=== PATIENT | male | born 1940 | race Hispanic/Latino ===

== ENCOUNTER 2018-04-15 07:54 | Inpatient (IN) | payer MEDICARE ==
[~2018-04-15] VITALS: Ht 175.3 cm; Wt 92.1 kg
[~2018-04-15 07:54] MED LIST: ALPRAZOLAM0.25 MG PO; AMLODIPINE BESY10 MG PO; CELEBREX200 MG PO; GALANTAMINE HBR8 MG PO; HYDROCHLOROTH12.5 MG PO; IMDUR60 MG PO; K DUR10 MEQ PO; LIPITOR40 MG PO; LISINOPRIL40 MG PO; LOSARTAN-HCTZ1 EAC1 PO; LYRICA75 MG PO; METOPROLOL SUCC25 MG PO; NITROGLYCERIN0.4 MG SL; OMEPRAZOLE20 M1 PO; PROSCAR5 MG PO; QUESTRAN PACKET4 GM PO
[2018-04-15] MEDS ORDERED: ONDANSETRON HCL INJ 2 MG/ML VIAL IV PRN ×2 (08:00→09:15)
[2018-04-15] MEDS ORDERED: NITROGLYCERIN 2% OINT 1 GM PKT TOP ONE (08:00)
[2018-04-15 08:16] LABS: BASOPHILS % 0.1 % (0.0-1.0); EOSINOPHILS # (AUTO) 0.2 (0.0-0.4); EOSINOPHILS % 1.8 % (0.0-6.0); HEMATOCRIT 42.2 % (38.2-49.6); LYMPHOCYTES # (AUTO) 1.8 (1.0-3.2); LYMPHOCYTES % 22.3 % (18.0-39.1); MEAN CORPUSCULAR HEMOGLOBIN 33.6 pg (28-32); MEAN CORPUSCULAR HGB CONC 35.5 g/dL (31-35); MEAN CORPUSCULAR VOLUME 94.6 fL (81-99); MONOCYTES # (AUTO) 0.6 (0.2-0.8); MONOCYTES % 6.9 % (4.4-11.3); NEUTROPHILS # (AUTO) 5.6 (2.1-6.9); NEUTROPHILS % 68.7 % (38.7-80.0); PLATELET COUNT 143 x10e3/uL (140-360); RED BLOOD COUNT 4.46 x10e6/uL (4.3-5.7); RED CELL DISTRIBUTION WIDTH 12.9 % (11.7-14.4)
[2018-04-15] MEDS ORDERED: ASPIRIN 81 MG CHEW TAB PO ONE (08:30)
[2018-04-15] MEDS ORDERED: PANTOPRAZOLE 40 MG 10ML VIAL IV ONE (08:30)
[2018-04-15 08:35] LABS: ALANINE AMINOTRANSFERASE 32 IU/L (0-55); ALBUMIN 3.7 g/dL (3.5-5.0); ALBUMIN/GLOBULIN RATIO 1.1 (0.8-2.0); ALKALINE PHOSPHATASE 104 IU/L (40-150); AMYLASE 71 U/L (25-125); ANION GAP 12.8 mmol/L (8-16); BLOOD UREA NITROGEN 13 mg/dL (7-26); BUN/CREATININE RATIO 18 (6-25); CALCIUM 8.9 mg/dL (8.4-10.2); CARBON DIOXIDE 21 mmol/L (22-29); CHLORIDE 111 mmol/L (98-107); CREATINE KINASE 90 IU/L (30-200); CREATININE, SERUM 0.74 mg/dL (0.72-1.25); EST GLOMERULAR FILTRATION RATE > 60 ML/MIN (60-); GLUCOSE 131 mg/dL (74-118); LIPASE 31 U/L (8-78); MAGNESIUM 2.1 MG/DL (1.3-2.1); POTASSIUM 3.8 mmol/L (3.5-5.1); SODIUM 141 mmol/L (136-145)
[2018-04-15] MEDS ORDERED: VITAMIN D1000 UNI1 PO (08:50)
[2018-04-15] MEDS ORDERED: SERTRALINE HCL50 MG PO (08:50)
--- NOTE | 2018-04-15 08:53 | Diagnostic Imaging Report ---
Examination: Single AP view of the chest. COMPARISON: None. INDICATION: Chest pain DISCUSSION: Lines/tubes: None. Lungs: Lungs are well-inflated and clear. Pleura: There is no pleural effusion or pneumothorax. Heart and mediastinum: The heart and the mediastinum are unremarkable. Bones and soft tissues: No acute bony abnormalities. IMPRESSION: 1. No acute cardiopulmonary abnormalities. Signed by: Dr. Cedric Perera M.D. on 04/15/2018 8:50 AM
[2018-04-15] MEDS ORDERED: ZOLPIDEM TARTRATE 5 MG TAB PO PRN (09:15)
[2018-04-15] MEDS ORDERED: SODIUM CHLORIDE FLUSH 10 ML SYR INJ PRN (09:15)
[2018-04-15] MEDS ORDERED: MORPHINE SULFATE 2 MG/ML SYR IV PRN (09:15)
[2018-04-15] MEDS ORDERED: ENALAPRILAT IV INJ 1.25 MG/ML VIAL IV PRN (09:15)
[2018-04-15] MEDS ORDERED: DIPHENHYDRAMINE HCL 25 MG CAP PO PRN (09:15)
[2018-04-15] MEDS ORDERED: DIPHENHYDRAMINE HCL INJ 50 MG/ML VIAL IV PRN (09:15)
[2018-04-15] MEDS ORDERED: METOPROLOL TARTRATE 25 MG TAB PO SCH (09:15)
[2018-04-15] MEDS ORDERED: ACETAMINOPHEN 325 MG TAB PO PRN (09:15)
[2018-04-15] MEDS ORDERED: LACTULOSE SYRUP 20 GM/30 ML UDC PO PRN (09:15)
[2018-04-15] MEDS ORDERED: DEXTROSE 50% SYRINGE 50 ML IV PRN (09:45)
[2018-04-15] MEDS: ENOXAPARIN SODIUM INJ 100 MG/ML SYR SC SCH ×2 (10:22→22:00)
[2018-04-15 10:51] VITALS: BP 125/67
[2018-04-15 11:01] VITALS: BP 125/67
[2018-04-15 11:16] VITALS: BP 125/67
[2018-04-15] MEDS: INSULIN REGULAR, HUMAN 100 UNIT/1 ML 3ML VIAL SQ SCH ×3 (11:30→22:00)
[2018-04-15] MEDS: NITROGLYCERIN 2% OINT 1 GM PKT TOP SCH ×2 (12:09→17:26)
--- NOTE | 2018-04-15 13:17 | History and Physical ---
The patient is a 77-year-old male who was admitted due to chest pain present for the last 3 weeks. The patient is known of having coronary artery disease and had heart catheterization in 2012. 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 He has a history of hypertension, diabetes mellitus, hyperlipidemia, arthritis. Never smoked. No second-hand smoking exposure. He denies lung, GI, neurology problems. HE HAS ALLERGIES TO LAMISIL AND TAGAMET. In terms of surgery, TURP for B-type natriuretic peptide, cataract surgery, laser in the left eye, back surgery. He used to drink since the age of 20 and quit drinking in 1980. He denies illicit drug abuse. At home, he is on: 1. Norvasc 10 mg a day. 2. Atorvastatin 80 mg a day. 3. Finasteride 5 mg a day. 4. Losartan 100 mg a day. 5. Nitroglycerin 0.4 p.r.n. 6. Omeprazole 20 mg daily. 7. Potassium chloride 20 mEq a day. 8. Sertraline 50 mg a day. PHYSICAL EXAMINATION GENERAL: He is alert and cooperative. Speaks only Algerian. VITALS: Pulse 60, blood pressure 160/82, oxygen saturation 98 on room air. HEENT: Atraumatic. NECK: No tenderness. LUNGS: Clear. HEART: No heart murmur. ABDOMEN: Soft. EXTREMITIES: No pedal edema. LABS: The CBC was unremarkable. Chemistry: BUN 18. Sugar 131. CPK 90, CK-MB 120, troponin I less than 0.001. BNP 54. The rest of the labs were unremarkable. The electrocardiogram disclosed changes of repolarization. IMPRESSION 1. Chest pains. 2. History of coronary artery disease. 3. Hypertension. 4. Diabetes mellitus. 5. Hyperlipidemia. 6. Arthritis. The patient was given nitroglycerin patch. Besides that, he had aspirin. Currently on Lovenox getting 80 mg q.12 h. subcutaneously, nitroglycerin 2% patch, simvastatin 40 mg a day, and sliding scale of Humulin. Consultation with Dr. Lasha Cui was requested for cardiology evaluation. Dictated by Dr. Tyrone Guerrero. Job#: [id number]
[2018-04-15 15:52] VITALS: BP 135/69
[2018-04-15 18:13] LABS: CREATINE KINASE MB 1.1 ng/mL (0-5.0)
[2018-04-15 20:27] VITALS: BP 132/65
[2018-04-15] MEDS ORDERED: SIMVASTATIN 40 MG TAB PO SCH (21:00)
[2018-04-15 22:00] VITALS: BP 132/65
[2018-04-16] MEDS: NITROGLYCERIN 2% OINT 1 GM PKT TOP SCH ×3 (00:04→12:00)
[2018-04-16 00:22] VITALS: BP 126/76
--- NOTE | 2018-04-16 01:44 | Consultation ---
DATE OF CONSULTATION: April 15, 2018 CARDIOLOGY CONSULT NOTE REASON FOR CONSULT: Chest pain. CHIEF COMPLAINT: My told me to come to the ER for chest pain. HPI: Patient is a 77-year-old man who is followed by a delivery rn in [facility], who has history of hypertension, hyperlipidemia, and diabetes. Also has history of reported CAD, status post cath but no stents in 2012. He has been experiencing left-sided chest pain that is 4 to 6 out of 10 in severity. Happened episodically, not associated with exertion. No radiation, diaphoresis, or shortness of breath. For this chest pain, he underwent a stress test with his delivery rn earlier this week and was told that the stress test was abnormal and he is to undergo cardiac catheterization with his delivery rn in [facility] on Tuesdays, April 18, 2018. He came to the ER this morning because of continued complaint of episodes of chest pain. His was concerned and wanted him to be checked out in the hospital. Since his presentation, chest pain has since resolved and he says he feels well. PAST MEDICAL HISTORY 1. Coronary artery disease. 2. Hypertension. 3. Hyperlipidemia. 4. Diabetes. SOCIAL HISTORY: Patient denies smoking, drinking, or illicit drug use. FAMILY HISTORY: No family history of early coronary artery disease. REVIEW OF SYSTEMS: A 10-point review of systems was performed. Other than what is stated in the HPI was notable for 1 episode of dizziness while walking back from the kitchen and several episodes of lightheadedness. Otherwise, no episodes of syncope. All other review of systems was negative. PHYSICAL EXAMINATION VITAL SIGNS: Temperature 98.9, pulse 57 beats per minute, respiratory rate 18, blood pressure 135/69, and satting 100% on room air. EYES: Conjunctivae clear. EARS, NOSE, MOUTH, AND THROAT: Normal mucosa. No pallor or bleeding. NECK: No jugular venous distention. MUSCULOSKELETAL: Normal muscle tone and strength. No atrophy or abnormal movements. EXTREMITIES: No clubbing or cyanosis. SKIN: No venous stasis changes or ulcers. GENERAL: Well developed, well nourished. CARDIOVASCULAR: PMI nondisplaced. Regular S1 and S2. No murmur, rubs, or gallops. Normal carotid pulses. Palpable femoral pulses, palpable pedal pulses. No peripheral edema or varicosities. RESPIRATORY: No respiratory distress. Clear to auscultation bilaterally. ABDOMEN: Soft, nontender, and nondistended. No hepatosplenomegaly. NEURO/PSYCH: Alert and oriented to person, place, and time. Normal affect. MEDICATIONS 1. Lovenox 80 mg subcutaneous q.12 h. 2. Pantoprazole 40 mg IV daily. 3. Simvastatin 40 mg nightly. 4. Lisinopril 10 mg daily. 5. Aspirin 325 mg daily. LABS: All laboratory findings reviewed, notable for negative cardiac enzymes including troponin less than 0.001. IMAGING: Findings reviewed. Chest x-ray normal. EKG reviewed, no ST-T changes suggestive of ischemia. ASSESSMENT 1. Chest pain. 2. Coronary artery disease. PLAN: So far, cardiac enzymes are negative. Recommend getting 3 sets of cardiac enzymes today. Continue subcutaneous Lovenox therapeutic dose as ordered as well as aspirin and statin. In the meantime, we will monitor closely on telemetry. If patient rules out for VT and has no further episodes of chest pain overnight, patient can be discharged to the care of his outpatient delivery rn for outpatient cardiac cath on Tuesday. If he rules in for myocardial infarction, we will discuss with patient regarding getting a cardiac catheterization during this admission. Thank you for this consult. Will continue to follow. Job#: [id number] [id number]
[2018-04-16 04:00] VITALS: BP 131/79
[2018-04-16 06:36] LABS: CREATINE KINASE 53 IU/L (30-200)
[2018-04-16 07:25] LABS: CHOL/HDL RATIO 2.4 (3.9-4.7)
[2018-04-16] MEDS: INSULIN REGULAR, HUMAN 100 UNIT/1 ML 3ML VIAL SQ SCH ×2 (07:30→11:30)
[2018-04-16] MEDS: ENOXAPARIN SODIUM INJ 100 MG/ML SYR SC SCH (08:14)
[2018-04-16 08:21] VITALS: BP 133/67
[2018-04-16] MEDS ORDERED: PANTOPRAZOLE 40 MG 10ML VIAL IV SCH (09:00)
[2018-04-16] MEDS ORDERED: ASPIRIN 325 MG TAB EC PO SCH (09:00)
[2018-04-16] MEDS ORDERED: LISINOPRIL 10 MG TAB PO SCH (09:00)
--- NOTE | 2018-04-16 12:07 | Progress Note ---
DATE: April 16, 2018 CARDIOLOGY PROGRESS NOTE SUBJECTIVE: No major events overnight. Patient feels well. No further episodes of chest pain. REVIEW OF SYSTEMS: Negative, other than stated in the HPI. OBJECTIVE VITAL SIGNS: Temperature 96.8, heart rate 56, respiratory rate 20, blood pressure 133/67, satting 100% on room air. GENERAL: Well-developed, well-nourished male. CARDIOVASCULAR: PMI nondisplaced. Regular S1 and S2. No murmur, rubs, or gallops. Normal carotid pulses. Palpable femoral pulses. Palpable pedal pulses. No peripheral edema or varicosities. RESPIRATORY: No respiratory distress. Lungs are clear to auscultation bilaterally. ABDOMEN: Soft, nontender, and nondistended. No hepatosplenomegaly. NEURO/PSYCH: Alert and oriented to person, place, and time. Normal affect. MEDICATIONS 1. Lisinopril 10 mg daily. 2. Aspirin 325 mg daily. 3. Simvastatin 40 mg at bedtime. LABS: Serial cardiac enzymes were negative. IMAGING: No new imaging to review today. TELEMETRY: Sinus bradycardia without any significant arrhythmias. ASSESSMENT AND PLAN 1. Chest pain. 2. Coronary artery disease. 3. Hypertension. 4. Hyperlipidemia. PLAN: The patient has ruled out for acute NH. Patient had a recent stress test which was positive and already planned for outpatient cardiac catheterization with his primary mail machine operator on Tuesday. Patient is okay to be discharged from a cardiac standpoint and can receive his outpatient cardiac catheterization on Tuesday. The patient has been instructed to not exert himself in any way and come to the ER if he experiences chest pain that is not relieved by rest or nitroglycerin. Thank you for this consult. Will sign off. Job#: [id number]
--- NOTE | 2018-04-16 15:27 | Discharge Summary ---
The patient is a 77-year-old male who was admitted due to chest pain and discomfort present in the central chest as well as in the left side of the chest, neck and left shoulder. The patient has had the pains over the last 2 weeks. He has a history of coronary artery disease, diabetes mellitus, hypertension, also off and on shortness of breath. The patient was admitted because of that. During the time that he stayed here, he was feeling better without any significant complaint. In the admission, the patient was alert. The vitals were stable. HEENT: Atraumatic. Neck: No tenderness. Lungs are clear. No heart murmur. Abdomen is soft. Extremities: No clubbing or pedal edema. The electrocardiogram disclosed no acute process. The rate was 64. The rest disclosed nonspecific changes. The chest x-ray was unremarkable. Laboratory tests: Chemistry and CBC were unremarkable. The patient today is feeling fine. No pain. The heart rate is between 40 and 50. Afebrile. Blood pressure 133/67, respiratory rate 20, oxygen saturation on room air 100%. The patient is being discharged. He is supposed to have an echocardiogram sometime today. He has an appointment for a heart catheterization sometime next week. FINAL DIAGNOSES 1. Chest pain. 2. Coronary artery disease. 3. Diabetes mellitus. 4. Hypertension. RECOMMENDATIONS: Continue with his medications. He is taking Norvasc 10 mg a day, atorvastatin 80 mg a day, losartan 100 mg a day. He was taking metoprolol; but considering the bradycardia, the metoprolol is on hold. He is taking nitroglycerin p.r.n. and omeprazole 20 a day. He is supposed also to take aspirin [address] Tyrone Guerrero. JP PARRISH M.D. Job#: [id number]
== END 2018-04-16 12:15 | disposition home or self-care (01) | DRG 313 ==
LOC: ER 07:54 → ERHOLD 09:08 → MED/SURG 10:22
PROVIDERS: ADMIT Internal Medicine; ATTEND Internal Medicine
DX: R07.9 Chest pain, unspecified (principal); I10 Essential (primary) hypertension; E78.5 Hyperlipidemia, unspecified; E11.9 Type 2 diabetes mellitus without complications; I25.10 Atherosclerotic heart disease of native coronary artery without angina pectoris; R00.1 Bradycardia, unspecified; M19.90 Unspecified osteoarthritis, unspecified site
CPT/HCPCS: 36415; 71045; 80053; 80061; 82150; 82550; 82553; 82948; 83690; 83735; 83880; 84484; 85025; 85379; 93005; 93306; 99284; J1650

== ENCOUNTER 2018-06-20 08:02 | Observation (INO) | payer MEDICARE ==
[~2018-06-20] VITALS: Ht 175.3 cm; Wt 77.3 kg
[~2018-06-20 08:02] MED LIST changes: +SERTRALINE HCL50 MG PO; +VITAMIN D1000 UNI1 PO
[2018-06-20] MEDS ORDERED: ONDANSETRON HCL INJ 2 MG/ML VIAL IV STA (08:23)
[2018-06-20] MEDS ORDERED: MORPHINE SULFATE 2 MG/ML SYR IV STA (08:23)
[2018-06-20] MEDS ORDERED: SODIUM CHLORIDE 0.9% 1000ML 1,000 ML IV SCH (08:30)
[2018-06-20 08:42] LABS: BASOPHILS % 0.2 % (0.0-1.0); EOSINOPHILS # (AUTO) 0.1 (0.0-0.4); EOSINOPHILS % 1.8 % (0.0-6.0); HEMATOCRIT 40.7 % (38.2-49.6); HEMOGLOBIN 14.3 g/dL (14.0-18.0); LYMPHOCYTES # (AUTO) 1.4 (1.0-3.2); LYMPHOCYTES % 21.9 % (18.0-39.1); MEAN CORPUSCULAR HEMOGLOBIN 33.6 pg (28-32); MEAN CORPUSCULAR HGB CONC 35.1 g/dL (31-35); MEAN CORPUSCULAR VOLUME 95.5 fL (81-99); MONOCYTES # (AUTO) 0.5 (0.2-0.8); MONOCYTES % 7.5 % (4.4-11.3); NEUTROPHILS # (AUTO) 4.5 (2.1-6.9); NEUTROPHILS % 68.1 % (38.7-80.0); PLATELET COUNT 144 x10e3/uL (140-360); RED BLOOD COUNT 4.26 x10e6/uL (4.3-5.7); RED CELL DISTRIBUTION WIDTH 12.9 % (11.7-14.4)
[2018-06-20 08:58] LABS: ALANINE AMINOTRANSFERASE 28 IU/L (0-55); ALBUMIN 4.1 g/dL (3.5-5.0); ALBUMIN/GLOBULIN RATIO 1.4 (0.8-2.0); ALKALINE PHOSPHATASE 92 IU/L (40-150); AMYLASE 61 U/L (25-125); ANION GAP 14.6 mmol/L (8-16); BLOOD UREA NITROGEN 10 mg/dL (7-26); BUN/CREATININE RATIO 12 (6-25); CALCIUM 8.9 mg/dL (8.4-10.2); CARBON DIOXIDE 21 mmol/L (22-29); CHLORIDE 109 mmol/L (98-107); CREATINE KINASE 109 IU/L (30-200); CREATININE, SERUM 0.84 mg/dL (0.72-1.25); EST GLOMERULAR FILTRATION RATE > 60 ML/MIN (60-); GLUCOSE 153 mg/dL (74-118); LIPASE 17 U/L (8-78); POTASSIUM 3.6 mmol/L (3.5-5.1); SODIUM 141 mmol/L (136-145)
[2018-06-20 10:03] LABS: CLARITY,URINE SL CLOUDY (CLEAR); COLOR,URINE YELLOW (YELLOW)
[2018-06-20 10:04] LABS: BILIRUBIN,URINE NEGATIVE (NEGATIVE); KETONES,URINE NEGATIVE (NEGATIVE); LEUKOCYTE ESTERASE ,URINE NEGATIVE (NEGATIVE); NITRITE,URINE NEGATIVE (NEGATIVE); PROTEIN,URINE DIPSTICK NEGATIVE (NEGATIVE); URINE UROBILINOGEN 0.2 mg/dL (0.2 - 1)
[2018-06-20 10:20] LABS: EPITHELIAL CELLS,URINE RARE /LPF; RBC,URINE 21-50 /HPF (0-5)
--- NOTE | 2018-06-20 11:12 | Diagnostic Imaging Report ---
PROCEDURE: CT ABDOMEN AND PELVIS WITH CONTRAST TECHNIQUE: The abdomen and pelvis were scanned utilizing a multidetector helical scanner from the diaphragm to the lesser trochanter after the IV administration of 100 cc of Isovue 370. Coronal and sagittal multiplanar reformations were obtained. Dose reduction parameters were utilized. DLP: 510.00 mGy-cm COMPARISON: None. INDICATIONS: RIGHT SIDE ABDOMEN PAIN FINDINGS: LOWER THORAX: Normal. HEPATOBILIARY: Multiple hepatic cysts. No biliary ductal dilatation. SPLEEN: No splenomegaly. PANCREAS: No focal masses or ductal dilatation. ADRENALS: No adrenal nodules. KIDNEYS/URETERS: Partially obstructing 6 mm right proximal ureteral stone with mild hydronephrosis. There is a 3 mm right interpolar renal stone. Perinephric fat stranding on the right side is present. Exophytic medial cortical upper pole renal cyst and a large 7 cm lower pole renal cyst on the right. Perinephric fat stranding and fluid around the right kidney is mild. There are 2 small left upper pole renal cysts. PELVIC ORGANS/BLADDER: The urinary bladder is distended. PERITONEUM / RETROPERITONEUM: No free air or fluid. LYMPH NODES: No lymphadenopathy. VESSELS: Unremarkable. GI TRACT: No distention or wall thickening. BONES AND SOFT TISSUES: Fusion hardware from L4-S1. Degenerative changes of these lower thoracic and lumbar spine. IMPRESSION: 1. Partially obstructing right proximal ureteral stone. 2. Small interpolar right renal stone. 3. Bilateral renal cysts with a large one involving the right lower pole. 4. Benign-appearing hepatic cysts. Zen Jauregui D.O. Dictated by: Zen Jauregui D.O. on 06/20/2018 at 11:19 Electronically approved by: Zen Jauregui D.O. on 06/20/2018 at 11:19
[2018-06-20] MEDS ORDERED: CEFTRIAXONE SOD 1 GM VIAL IV SCH (12:00)
[2018-06-20] MEDS: SODIUM CHLORIDE 0.9% 1000ML 1,000 ML IV SCH ×2 (12:50→19:34)
[2018-06-20 14:34] VITALS: BP 153/75
[2018-06-20] MEDS ORDERED: IOPAMIDOL 370 MG/ML 200 ML INFUS..BTL INJ ONE (15:59)
[2018-06-20] MEDS ORDERED: SODIUM CHLORIDE 0.9% 50ML 50 ML ONE (15:59)
[2018-06-20 16:56] VITALS: BP 139/69
[2018-06-20 20:00] VITALS: BP 156/77
[2018-06-20] MEDS ORDERED: ATORVASTATIN 40 MG TAB PO SCH (21:00)
--- NOTE | 2018-06-20 21:38 | Consultation ---
DATE OF CONSULTATION: June 20, 2018 UROLOGY CONSULTATION REASON FOR CONSULTATION: Kidney stone. HISTORY OF PRESENT ILLNESS: Mr. Alcantara is a 77-year-old male patient, admitted to the hospital with acute, sharp, severe right-sided flank pain. Denied dysuria. Denied experiencing previously pains like this. He does have nocturia 2 times per night. PAST MEDICAL HISTORY: Notable for hypertension, diabetes mellitus, hyperlipidemia, coronary artery disease, status post laser prostate surgery for BPH, status post back surgery. MEDICATIONS: Please see MAR. ALLERGIES: NKDA. SOCIAL HISTORY: Denies smoking, no drinking. FAMILY HISTORY: Denied urologic stones. No malignancies. REVIEW OF SYSTEMS: Noncontributory other than problems mentioned above for 12 organ systems. PHYSICAL EXAMINATION: GENERAL: An elderly male, in no acute distress. VITAL SIGNS: Currently, temperature 97.7, pulse 54, respirations 16, blood pressure 129/71. HEENT: Sclerae are anicteric. NECK: Supple. BACK: Without costovertebral angle tenderness bilaterally. ABDOMEN: Soft. It is nontender, it is nondistended. There is no palpable mass. No palpable hernias. No palpable inguinal lymphadenopathy. : Normal male external genitalia. EXTREMITIES: Without edema. NEURO: Moves all 4 extremities. PSYCH: Alert. Mood appropriate. SKIN: Intact. Normal color. PERTINENT LABORATORY DATA: CT scan revealing a right 6 mm proximal ureteral stone, left-sided 7 cm cyst. Hemoglobin 14, hematocrit 41, platelet count 144,000, white cell count 6500. Sodium 141, potassium 3.1, chloride 109, bicarb 21, BUN 10, creatinine 0.8, glucose 153. Urinalysis, 21 to 50 reds. IMPRESSION: 1. Right ureteral calculus. 2. Right hydronephrosis. 3. Left renal cyst. 4. Microscopic hematuria. 5. Hypertension. 6. Benign prostatic hypertrophy. PLAN: Would employ brief trial of passage. If this fails, the patient will likely need shock wave lithotripsy versus ureteroscopy. will need surveillance. For microscopic hematuria, electively cystoscopy. Thank you for allowing me to participate in the care of your patient. Will be happy to follow along with you. Job#: [id number]
[2018-06-21] VITALS (7 sets, daily range): BP systolic 130–166; BP diastolic 61–80
[2018-06-21] MEDS ORDERED: HYDRALAZINE HCL 20 MG/ML VIAL IV PRN (01:30)
[2018-06-21] MEDS: SODIUM CHLORIDE 0.9% 1000ML 1,000 ML IV SCH ×3 (02:05→19:34)
--- NOTE | 2018-06-21 08:51 | Diagnostic Imaging Report ---
EXAM: Abdomen 1 Views INDICATION: Kidney stone COMPARISON: CT abdomen and pelvis 06/20/2018 FINDINGS: Mild amount of stool in the colon. No dilated loops of small bowel. 0.6 cm stone in the proximal right ureter at at L2-L3 level remain unchanged. No abnormal soft tissue masses. Moderate degenerative changes in the lumbar spine and pelvis. Posterior fusion of L4, L5, and S1 with intervertebral disc prosthesis. IMPRESSION: Unchanged 0.6 cm proximal right ureteral stone at L2-L3 level. Signed by: Dr. Juno Flores M.D. on 06/21/2018 8:47 AM
[2018-06-21] MEDS ORDERED: LOSARTAN POTASSIUM 100 MG TAB PO SCH (09:00)
[2018-06-21] MEDS ORDERED: FINASTERIDE 5 MG TAB PO SCH (09:00)
[2018-06-21] MEDS ORDERED: SERTRALINE HCL 50 MG TAB PO SCH (09:00)
[2018-06-21] MEDS ORDERED: AMLODIPINE BESYLATE 10 MG TAB PO SCH (09:00)
[2018-06-21] MEDS ORDERED: ISOSORBIDE MONONITRATE 30 MG TAB CR PO SCH (09:00)
[2018-06-21] MEDS ORDERED: HYDROCHLOROTHIAZIDE 25 MG TAB PO SCH (09:00)
[2018-06-21] MEDS ORDERED: NON-FORMULARY MEDICATION (Losartan/Hydrochlorothiazide (Losartan-Hctz 100-25 Mg Tab) 1 TAB PO SCH (09:00)
[2018-06-21] MEDS ORDERED: CEFTRIAXONE SOD 1 GM VIAL IV SCH (09:00)
[2018-06-21] MEDS ORDERED: ISOSORBIDE MONONITRATE 60 MG PO SCH (09:00)
[2018-06-21] MEDS ORDERED: NON-FORMULARY MEDICATION (Atorvastatin Calcium (Lipitor) 40 MG) PO SCH (09:00)
[2018-06-21] MEDS: ONDANSETRON HCL INJ 2 MG/ML VIAL IV PRN ×2 (10:05→19:39)
[2018-06-21] MEDS: MORPHINE SULFATE 2 MG/ML SYR IV PRN ×2 (10:05→19:39)
[2018-06-21] MEDS ORDERED: FENTANYL CITRATE/PF 100MCG/2 ML INJ ONE ×2 (13:22→19:14)
--- NOTE | 2018-06-21 14:25 | Operative Report ---
DATE OF PROCEDURE: June 21, 2018 PREOPERATIVE DIAGNOSIS: Right ureteral stone. POSTOPERATIVE DIAGNOSIS: Right ureteral stone. OPERATIONS PERFORMED: 1. Staged right-sided shockwave lithotripsy. 2. Supervision of fluoroscopy. ANESTHESIA: General. ESTIMATED BLOOD LOSS: Minimal. COMPLICATIONS: None. INDICATIONS FOR PROCEDURE: Mr. Alcantara is a 77-year-old male who has failed his trial of passage of a right 6 mm proximal ureteral stone. He and I had a long discussion with an therapeutic recreation director regarding the alternatives, risks and benefits including doing nothing, shockwave lithotripsy, ureteroscopy, percutaneous surgery , stenting and open surgery. He explicitly did not want a stent, and he elected to proceed with shockwave lithotripsy, feeling it is noninvasive and the option with the best benefits/risks ratio and elects to proceed. PROCEDURE IN DETAIL: After informed consent was obtained, the patient was taken to the operative suite and placed supine on the operating table, underwent general anesthesia by the anesthesia services. The stone was localized in the X, Y, and Z planes. A total of 1000 shocks was delivered per the treatment port. The stone was no longer visulaized. Patient tolerated the procedure well and was transported to the recovery room in excellent condition. There were no untoward effects noted. I spoke with the patient in recovery. Despite explicit instructions to remain the patient's was not available in the waiting room nor patients room. SUPERVISION OF FLUOROSCOPY: I was present throughout the entire procedure, and I supervised the use of fluoroscopy. There was no radiologist present. Job#: [id number] [id number]
[2018-06-21] MEDS ORDERED: TYLENOL WITH C1 EACH PO (18:17)
[2018-06-21] MEDS ORDERED: LEVAQUIN500 MG PO (18:17)
[2018-06-21] MEDS ORDERED: LIDOCAINE HCL 2% LOCAL INJ 5 ML SDV VIAL INJ ONE (18:59)
[2018-06-21] MEDS ORDERED: DEXAMETHASONE SOD PHOS INJ 4 MG/ML VIAL ONE (18:59)
[2018-06-21] MEDS ORDERED: DESFLURANE 240 ML BTL INH ONE (18:59)
[2018-06-21] MEDS ORDERED: PROPOFOL IV EMULSION 10 MG/ML 20 ML VIAL ONE (18:59)
[2018-06-21] MEDS ORDERED: ONDANSETRON HCL INJ 2 MG/ML VIAL ONE (18:59)
[2018-06-21] MEDS ORDERED: MIDAZOLAM HCL 2 MG/2 ML VIAL ONE (19:14)
== END 2018-06-21 20:36 | disposition home or self-care (01) ==
LOC: ER 08:02 → ERHOLD 11:34 → MED/SURG 13:07 → IMCU 06-21 17:42
PROVIDERS: ADMIT Internal Medicine; ATTEND Internal Medicine
DX: N13.2 Hydronephrosis with renal and ureteral calculous obstruction (principal); I10 Essential (primary) hypertension; E11.9 Type 2 diabetes mellitus without complications; E78.5 Hyperlipidemia, unspecified; I25.10 Atherosclerotic heart disease of native coronary artery without angina pectoris; R00.1 Bradycardia, unspecified; N40.0 Benign prostatic hyperplasia without lower urinary tract symptoms; R31.29 Other microscopic hematuria
CPT/HCPCS: 36415 ×2; 50590; 74018; 74177; 80053; 81001; 82150; 82550; 82553; 82948 ×2; 83605; 83690; 84484; 85025; 87086; 93005; 99284; G0378 ×2; J0360; J0696 ×2; J1100; J2001; J2250; J2270 ×2; J2405 ×2; J7030 ×2; Q9967